=== PATIENT | female | born 1950 | race Caucasian/White ===

== ENCOUNTER → 2017-03-03 | Outpatient (CLI) | payer OTHER ==
--- NOTE | 2017-03-05 06:30 | ECHOCARDIOGRAPHY REPORT ---
DATE OF SERVICE: 03/03/2017 ECHOCARDIOGRAPHY REPORT ORDERING PHYSICIAN: Dr. Aguero. PRIMARY PHYSICIAN: Dr. Hancock. OTHER PHYSICIAN: Dr. Valenzuela. CLINICAL DIAGNOSIS: Chest discomfort. MEASUREMENTS: LV diameter diastolic 4.9, IVS thickness, diastolic 1.2, LVPW thickness, diastolic 1, aortic root 3.7, left atrium 4. DESCRIPTION: Two-dimensional echocardiography shows well-preserved global left ventricular systolic function with an ejection fraction approximately 55 to 60%. The aortic, mitral and tricuspid valve leaflets show good leaflet excursion. There is no significant pericardial effusion. Doppler imaging shows trivial tricuspid regurgitation. Pulmonary artery systolic pressure is estimated at approximately 25 mmHg. There is mild aortic valve sclerosis. The aortic valve appears to be trileaflet. There is no Doppler evidence of any significant valvular stenosis. Mitral inflow is consistent with grade I diastolic dysfunction of the left ventricle. Doppler imaging shows trivial aortic regurgitation. There is no evidence of significant intracardiac shunt on this transthoracic echocardiographic study; although, subcostal views are limited. CONCLUSIONS: 1. Normal global left ventricular systolic function with ejection fraction approximately 55%. 2. Trivial to mild mitral and tricuspid regurgitation. 3. Pulmonary artery systolic pressure is estimated at approximately 25 mmHg. 4. No evidence of any significant valvular stenosis. 5. Mild diastolic dysfunction of the left ventricle. Job ID: [id number] DocumentID: [id number] Dictated Date: 03/04/2017 14:28:23 Vacuum Cooker Operator Date: 03/04/2017 19:00:24 Dictated By: KAROL AGUERO MD, MA, FACP, FACC,
== END ==
LOC: CARD 13:25
PROVIDERS: ATTEND Internal Medicine Cardiovascular Disease
DX: R07.89 Other chest pain (principal); R06.02 Shortness of breath
CPT/HCPCS: 93306

== ENCOUNTER → 2017-03-04 | Outpatient (CLI) | payer OTHER ==
[~2017-03-04] MED LIST: CATHETER FLUSH 10 ML SYR IV PRN; REGADENOSON 0.4 MG/5 ML SYR (LEXISCAN) IV ONE
[2017-03-04 10:10] VITALS: BP 134/84
--- NOTE | 2017-03-05 13:42 | STRESS TEST ---
DATE OF SERVICE: 03/04/2017 RESTING AND POST REGADENOSON TECHNETIUM 99M TETROFOSMIN SPECT CT IMAGING ORDERING PHYSICIAN: Dr. Aguero. PRIMARY PHYSICIAN: Dr. Hancock. CLINICAL DIAGNOSES: Chest discomfort, shortness of breath. Baseline images were carried out after injection of 10.04 mCi technetium-99m tetrofosmin. This was followed by 0.4 mg regadenoson and 30.8 mCi of technetium-99m tetrofosmin for stress imaging. The electrocardiogram showed sinus rhythm and did not change significantly with the regadenoson infusion. The patient tolerated the procedure well. Review of images at rest and following stress did not indicate any significant perfusion defects consistent with significant myocardial ischemia or infarction. Gated images show normal global left ventricular systolic function with normal regional wall motion. Left ventricular ejection fraction is calculated to be 61%. Left ventricular end-diastolic volume is 75 mL. TID is absent (1.18) CONCLUSIONS: 1. No evidence of any significant myocardial ischemia or infarction on this study. 2. Normal regional wall motion. 3. Normal global left ventricular systolic function with a calculated ejection fraction of 61%. Job ID: [id number] DocumentID: [id number] Dictated Date: 03/05/2017 09:30:02 Map Compiler Date: 03/05/2017 10:25:59 Dictated By: KAROL AGUERO MD, MA, FACP, FACC,
== END ==
LOC: CARD 08:13
PROVIDERS: ATTEND Internal Medicine Cardiovascular Disease
DX: R07.89 Other chest pain (principal); R06.02 Shortness of breath
CPT/HCPCS: 78452; 93017